=== PATIENT | male | born 1960 | race Caucasian/White ===

== ENCOUNTER 2017-11-30 14:01 | Inpatient (IN) | payer MEDICARE, OTHER ==
[~2017-11-30] VITALS: Ht 170.2 cm; Wt 104.0 kg
[~2017-11-30 14:01] MED LIST: ASPI325T PO; CYCL-36 PO; DIAZ2 PO; OXYC5 PO; PROZ40CA PO
[2017-11-30] MEDS ORDERED: GADODIAMIDE PF 287 MG/ML 5 ML VIAL (for RAD MRI) IVCONTRAST ONE (14:02)
[2017-11-30 14:05] VITALS: BP 164/87; PULSE 78; RESP 20; TEMP 98.3; O2SAT 98
--- NOTE | 2017-11-30 16:51 | PD ---
HPI Chief Complaint: Back/ Neck Pain or Injury Time Seen by Provider: 16:33 Travel History International Travel<30 days: No Contact w/Intl Traveler<30days: No Traveled to known affect area: No History of Present Illness HPI 57-year-old male here for evaluation of lower back pain, right thigh numbness, and bowel incontinence. The patient reports that for the last 2 weeks he has been having worsening lower back pain. He denies trauma. He reports that about a year and a half ago he had lumbar fusion. He reports that he was evaluated by orthopedist Dr. Tineo who ordered MRIs, however his insurance has not yet approved them. He states that for the last 2 days he has been having bowel incontinence having bowel movements in his bed while sleeping. He denies urinary incontinence or retention. Pain is 8 out of 10, severe, radiates down his right leg and associated with right leg weakness, made worse with movements. No fevers or chills. No IVDU. PFSH Past Medical History Arthritis: Yes Asthma: No Bipolar Disorder: Yes Anxiety: Yes Depression: Yes Heart Rhythm Problems: No Cardiovascular Problems: No High Cholesterol: No Chest Pain: No Congestive Heart Failure: No Cirrhosis: Yes COPD: No Cerebrovascular Accident: No Diabetes: No Diminished Hearing: No GERD: No Genitourinary: No Headaches: Yes Hepatitis: Yes (C) Hiatal Hernia: No Hypertension: No Kidney Stones: No Musculoskeletal: Yes Neurologic: No Reproductive: No Respiratory: No Migraines: Yes Renal Failure: No Seizures: No Sleep Apnea: No Ulcer: No Tetanus Vaccination: < 5 Years Influenza Vaccination: Yes PNEUMOCCOCAL Vaccine (Year): 2 Past Surgical History Abdominal Surgery: No Appendectomy: No Cardiac Surgery: No Cholecystectomy: No Ear Surgery: No Endocrine Surgery: No Eye Surgery: No Genitourinary Surgery: No Oral Surgery: No Thoracic Surgery: No Social History Alcohol Use: No Tobacco Use: Yes (1/2 PK/DAY) Substance Use: No Allergies-Medications (Allergen,Severity, Reaction): Coded Allergies: No Known Allergies (Verified , 10/08/15) Reported Meds & Prescriptions Reported Meds & Active Scripts Active Reported Valium (Diazepam) 2 Mg Tab 0 PO UNKNOWN DOSE Prozac (Fluoxetine HCl) 40 Mg Cap 40 Mg PO DAILY Oxycodone (Oxycodone HCl) 5 Mg Tab 10 Mg PO DAILY Flexeril (Cyclobenzaprine HCl) 10 Mg Tab 10 Mg PO DAILY Aspirin 325 Mg Tab (Aspirin) 325 Mg Tab 325 Mg PO DAILY Review of Systems Except as stated in HPI: all other systems reviewed are Neg Physical Exam Narrative GENERAL: Well-developed, well-nourished, comfortable, no apparent distress. SKIN: Focused skin assessment warm/dry. HEAD: Atraumatic. Normocephalic. EYES: Pupils equal and round. No scleral icterus. No injection or drainage. ENT: No nasal bleeding or discharge. Mucous membranes pink and moist. NECK: Trachea midline. No JVD. CARDIOVASCULAR: Regular rate and rhythm. No murmur appreciated. RESPIRATORY: No accessory muscle use. Clear to auscultation. Breath sounds equal bilaterally. GASTROINTESTINAL: Abdomen soft, non-tender, nondistended. MUSCULOSKELETAL: No obvious deformities. No clubbing. No cyanosis. No edema. NEUROLOGICAL: Awake and alert. No obvious cranial nerve deficits. Motor grossly within normal limits. Normal speech. Saddle anesthesia with decreased rectal tone. 4/5 muscle strength in right lower extremity in flexion and extension, 5/5 muscle strength in left lower extremity. Normal muscle strength in bilateral upper extremities. PSYCHIATRIC: Appropriate mood and affect; insight and judgment normal. Data Data Last Documented VS Vital Signs Date Time Temp Pulse Resp B/P (MAP) Pulse Ox O2 Delivery O2 Flow Rate FiO2 11/30/17 18:00 18 11/30/17 14:05 98.3 78 164/87 (112) 98 Orders Orders Complete Blood Count With Diff (11/30/17 14:07) Prothrombin Time / Inr (Pt) (11/30/17 14:07) Act Partial Throm Time (Ptt) (11/30/17 14:07) Comprehensive Metabolic Panel (11/30/17 14:07) Urinalysis - C+S If Indicated (11/30/17 14:07) Mri T Spine W/O Contrast (11/30/17 ) Morphine Inj (Morphine Inj) (11/30/17 17:45) Mri C Spine W&W/O Contrast (11/30/17 ) Mri L Spine W&W/O Contrast (11/30/17 ) Lorazepam Inj (Ativan Inj) (11/30/17 19:00) Labs Laboratory Tests Test 11/30/17 17:00 11/30/17 18:45 White Blood Count 7.8 TH/MM3 Red Blood Count 4.12 MIL/MM3 Hemoglobin 12.2 GM/DL Hematocrit 36.0 % Mean Corpuscular Volume 87.6 FL Mean Corpuscular Hemoglobin 29.6 PG Mean Corpuscular Hemoglobin Concent 33.9 % Red Cell Distribution Width 15.1 % Platelet Count 247 TH/MM3 Mean Platelet Volume 7.5 FL Neutrophils (%) (Auto) 74.4 % Lymphocytes (%) (Auto) 19.3 % Monocytes (%) (Auto) 4.7 % Eosinophils (%) (Auto) 0.6 % Basophils (%) (Auto) 1.0 % Neutrophils # (Auto) 5.8 TH/MM3 Lymphocytes # (Auto) 1.5 TH/MM3 Monocytes # (Auto) 0.4 TH/MM3 Eosinophils # (Auto) 0.1 TH/MM3 Basophils # (Auto) 0.1 TH/MM3 CBC Comment DIFF FINAL Differential Comment Urine Color YELLOW Urine Turbidity CLEAR Urine pH 6.0 Urine Specific [place] 1.017 Urine Protein NEG mg/dL Urine Glucose (UA) NEG mg/dL Urine Ketones NEG mg/dL Urine Occult Blood NEG Urine Nitrite NEG Urine Bilirubin NEG Urine Urobilinogen LESS THAN 2.0 MG/DL Urine Leukocyte Esterase NEG Urine RBC 1 /hpf Urine Squamous Epithelial Cells <1 /hpf Microscopic Urinalysis Comment CULT NOT INDICATED Blood Urea Nitrogen 9 MG/DL Creatinine 0.84 MG/DL Random Glucose 86 MG/DL Total Protein 7.4 GM/DL Albumin 3.9 GM/DL Calcium Level 8.9 MG/DL Alkaline Phosphatase 81 U/L Aspartate Amino Transf (AST/SGOT) 4 U/L Alanine Aminotransferase (ALT/SGPT) 13 U/L Total Bilirubin 0.4 MG/DL Sodium Level 142 MEQ/L Potassium Level 3.4 MEQ/L Chloride Level 110 MEQ/L Carbon Dioxide Level 25.1 MEQ/L Anion Gap 7 MEQ/L Estimat Glomerular Filtration Rate 94 ML/MIN [facility] Medical Decision Making Medical Screen Exam Complete: Yes Emergency Medical Condition: Yes Differential Diagnosis Spinal stenosis, conus medullaris syndrome, sciatica/radiculopathy, Narrative Course Vital signs reviewed. CBC is essentially unremarkable. CMP is essentially unremarkable. UA is not suggestive of UTI. At approximately 7:00 PM at the end of my shift the patient was signed out to Dr. Polk to follow-up with MRIs and disposition. Mitch Cunningham MD Nov 30, 2017 16:51
[2017-11-30] MEDS ORDERED: MORPHINE SULFATE 2 MG/ML SYRINGE IM ONE (17:45)
[2017-11-30 17:58] LABS: BILIRUBIN, URINE NEG (NEG); BLOOD, URINE NEG (NEG); GLUCOSE,URINE NEG (NEG); KETONE, URINE NEG (NEG); NITRITE,URINE NEG (NEG); SQUAMOUS EPITHELIAL CELL URINE <1 /hpf (0-5); URINE COLOR YELLOW (YELLW/STRAW); URINE LEUKOCYTE ESTERASE NEG (NEG)
[2017-11-30 17:59] LABS: AUTOMATED NEUTROPHIL # 5.8 TH/MM3 (1.8-7.7); BASOPHIL # 0.1 TH/MM3 (0-0.2); EOSINOPHIL # 0.1 TH/MM3 (0-0.4); EOSINOPHIL % 0.6 % (0.0-4.0); HEMOGLOBIN 12.2 GM/DL (13.0-17.0); LYMPH % 19.3 % (9.0-44.0); LYMPHOCYTE # 1.5 TH/MM3 (1.0-4.8); MEAN CELL VOLUME 87.6 FL (80.0-100.0); MEAN CORPUSCULAR HEMOGLOBIN 29.6 PG (27.0-34.0); MEAN CORPUSCULAR HGB CONC 33.9 % (32.0-36.0); MEAN PLATELET VOLUME 7.5 FL (7.0-11.0); MONO % 4.7 % (0.0-8.0); MONOCYTE # 0.4 TH/MM3 (0-0.9); NEUT % 74.4 % (16.0-70.0); PLATELET COUNT 247 TH/MM3 (150-450); RED BLOOD COUNT 4.12 MIL/MM3 (4.50-5.90); RED CELL DISTRIBUTION WIDTH 15.1 % (11.6-17.2); WHITE BLOOD COUNT 7.8 TH/MM3 (4.0-11.0)
[2017-11-30 18:10] LABS: ALBUMIN 3.9 GM/DL (3.4-5.0); AST (GOT) 4 U/L (15-37); BICARBONATE 25.1 MEQ/L (21.0-32.0); BLOOD UREA NITROGEN 9 MG/DL (7-18); CALCIUM 8.9 MG/DL (8.5-10.1); CHLORIDE 110 MEQ/L (98-107); CREATININE 0.84 MG/DL (0.60-1.30); GLOMERULAR FILTRATION RATE 94 ML/MIN (>89); GLUCOSE,RANDOM 86 MG/DL (74-106); SODIUM (NA) 142 MEQ/L (136-145)
[2017-11-30 18:11] LABS: ALT (GPT) 13 U/L (12-78)
[2017-11-30 18:13] LABS: ALKALINE PHOSPHATASE 81 U/L (45-117); TOTAL BILIRUBIN ADULT 0.4 MG/DL (0.2-1.0); TOTAL PROTEIN 7.4 GM/DL (6.4-8.2)
[2017-11-30 19:00] VITALS: BP 134/74; PULSE 70; RESP 18; O2SAT 96
[2017-11-30] MEDS ORDERED: LORazepam 2 MG/ML VIAL IV PUSH ONE (19:00)
--- NOTE | 2017-11-30 19:11 | PD ---
Data Data Last Documented VS Vital Signs Date Time Temp Pulse Resp B/P (MAP) Pulse Ox O2 Delivery O2 Flow Rate FiO2 11/30/17 18:00 18 11/30/17 14:05 98.3 78 164/87 (112) 98 Orders Orders Complete Blood Count With Diff (11/30/17 14:07) Prothrombin Time / Inr (Pt) (11/30/17 14:07) Act Partial Throm Time (Ptt) (11/30/17 14:07) Comprehensive Metabolic Panel (11/30/17 14:07) Urinalysis - C+S If Indicated (11/30/17 14:07) Mri T Spine W/O Contrast (11/30/17 ) Morphine Inj (Morphine Inj) (11/30/17 17:45) Mri C Spine W&W/O Contrast (11/30/17 ) Mri L Spine W&W/O Contrast (11/30/17 ) Lorazepam Inj (Ativan Inj) (11/30/17 19:00) Gadodiamide Pf Inj (Omniscan Pf Inj) (11/30/17 14:02) Morphine Inj (Morphine Inj) (11/30/17 20:30) Ondansetron Inj (Zofran Inj) (11/30/17 20:30) Sodium Chlor 0.9% 1000 Ml Inj (Ns 1000 M (11/30/17 21:30) Hydromorphone Pf Inj (Dilaudid Pf Inj) (11/30/17 21:30) Admit Order (Ed Use Only) (11/30/17 21:45) Labs Laboratory Tests Test 11/30/17 17:00 11/30/17 18:45 White Blood Count 7.8 TH/MM3 Red Blood Count 4.12 MIL/MM3 Hemoglobin 12.2 GM/DL Hematocrit 36.0 % Mean Corpuscular Volume 87.6 FL Mean Corpuscular Hemoglobin 29.6 PG Mean Corpuscular Hemoglobin Concent 33.9 % Red Cell Distribution Width 15.1 % Platelet Count 247 TH/MM3 Mean Platelet Volume 7.5 FL Neutrophils (%) (Auto) 74.4 % Lymphocytes (%) (Auto) 19.3 % Monocytes (%) (Auto) 4.7 % Eosinophils (%) (Auto) 0.6 % Basophils (%) (Auto) 1.0 % Neutrophils # (Auto) 5.8 TH/MM3 Lymphocytes # (Auto) 1.5 TH/MM3 Monocytes # (Auto) 0.4 TH/MM3 Eosinophils # (Auto) 0.1 TH/MM3 Basophils # (Auto) 0.1 TH/MM3 CBC Comment DIFF FINAL Differential Comment Urine Color YELLOW Urine Turbidity CLEAR Urine pH 6.0 Urine Specific [place] 1.017 Urine Protein NEG mg/dL Urine Glucose (UA) NEG mg/dL Urine Ketones NEG mg/dL Urine Occult Blood NEG Urine Nitrite NEG Urine Bilirubin NEG Urine Urobilinogen LESS THAN 2.0 MG/DL Urine Leukocyte Esterase NEG Urine RBC 1 /hpf Urine Squamous Epithelial Cells <1 /hpf Microscopic Urinalysis Comment CULT NOT INDICATED Blood Urea Nitrogen 9 MG/DL Creatinine 0.84 MG/DL Random Glucose 86 MG/DL Total Protein 7.4 GM/DL Albumin 3.9 GM/DL Calcium Level 8.9 MG/DL Alkaline Phosphatase 81 U/L Aspartate Amino Transf (AST/SGOT) 4 U/L Alanine Aminotransferase (ALT/SGPT) 13 U/L Total Bilirubin 0.4 MG/DL Sodium Level 142 MEQ/L Potassium Level 3.4 MEQ/L Chloride Level 110 MEQ/L Carbon Dioxide Level 25.1 MEQ/L Anion Gap 7 MEQ/L Estimat Glomerular Filtration Rate 94 ML/MIN Prothrombin Time 10.4 SEC Prothromb Time International Ratio 1.0 RATIO Activated Partial Thromboplast Time 23.5 SEC [facility] Medical Record Reviewed: Yes Supervised Visit with JASMYNE: No Interpretation(s) Last Impressions Thoracic Spine MRI 11/30/17 0000 Signed Impressions: Service Date/Time: Thursday, November 30, 2017 19:04 - CONCLUSION: Normal examination for a patient of this age. Goyo Lobo MD Lumbar Spine MRI 11/30/17 0000 Signed Impressions: Service Date/Time: Thursday, November 30, 2017 19:04 - CONCLUSION: 1. Facet arthropathy in the lower lumbar spine at L4-5-S1. This is most severe on the left side at L4-5 where there is associated abnormal marrow and soft tissue enhancement and edema and facet hypertrophy. There is lateral recess and foraminal encroachment bilaterally at L4-5-S1. Normal alignment. Goyo Lobo MD Cervical Spine MRI 11/30/17 0000 Signed Impressions: Service Date/Time: Thursday, November 30, 2017 19:04 - CONCLUSION: 1. Previous fusion of the lower cervical spine. No significant residual canal stenosis or cord impingement. Goyo Lobo MD Narrative Course During the course of the patient's emergency department visit, the patient's history, examination, and differential diagnosis were reviewed with the patient. The patient was placed on a radiation monitor with oximetry and frequent blood pressure monitoring. The patient had IV access obtained and blood work sent for analysis. The patient's case was checked out to me by Dr. Cunningham. He see his complete history and physical. The patient's case was checked out to me at the conclusion of his shift. Please see his complete history and physical. The patient is pending reading of the MRI of the C-spine, T-spine, and L-spine. The patient presented with low back pain that has been worsening over the last 2 weeks. Patient also has right lower extremity weakness, incontinence of stool, and saddle anesthesia on Dr. Cunningham's exam. The patient is being managed as an outpatient by Dr. May, a local orthopedic physician for his back pain The patient was initially provided morphine for pain, Ativan for anxiety. The patient's laboratory studies were reviewed and remarkable for a white count of 7.8, hemoglobin 12.2, platelets 247 with neutrophils 74.4. CMP is remarkable for potassium of 3.4, chloride 110, AST 4,Urinalysis is within normal limits. On arrival back from MRI the patient reported recurrence of pain. The patient was given morphine 4 mg IV 1, Zofran 4 mg IV. Radiology studies were reviewed and remarkable for a T-spine MRI that shows no acute abnormality. C-spine MRI shows a previous cervical fusion, no other acute abnormality. Lumbar spine MRI reveals facet arthropathy in the lower lumbar spine at L4-L5 L5-S1 most severe on the left side at L4-L5 where there is associated abnormal marrow and soft tissue enhancement and edema and facet hypertrophy. There is lateral recess and foraminal encroachment bilaterally at L4-5 S1. I spoke to Saira for Dr. Andrade battalion chief for Dr. May at 9:40PM. He recommended a routine consult with in the morning due to the nonacute findings on MRI. The patient's results were discussed with the patient, including the plan of care. I explained that further testing and/ or monitoring is indicated based on the patient's history, examination, and/ or laboratory findings. Therefore, I recommended admission for additional evaluation. The patient expressed understanding and was agreeable with this plan. The patient was admitted to the hospital in guarded condition and sent to a bed under the care of Dr. Gonzales's service. Physician Communication Physician Communication The patient's case including history, pertinent physical examination findings, and laboratory studies were discussed with Dotty for Dr. Gonzales's service. It was agreed that the patient would be admitted to Dr. Gonzales's service. Diagnosis Primary Impression: Back pain Qualified Codes: M54.41 - Lumbago with sciatica, right side Additional Impressions: Lumbar radiculopathy Stool incontinence Qualified Codes: R15.9 - Full incontinence of feces Right leg weakness Admitting Information Admitting Physician Requests: Admit Andreea Polk MD Nov 30, 2017 19:11
[2017-11-30 19:24] LABS: PROTHROMBIN TIME - PATIENT 10.4 SEC (9.8-11.6)
--- NOTE | 2017-11-30 19:57 | RADRPT ---
EXAM DATE/TIME: 11/30/2017 19:04 [facility] COMPARISON: No previous studies available for comparison. INDICATIONS : Pain. MEDICAL HISTORY : None. SURGICAL HISTORY : Fusion, cervical. Discectomy, lumbar. ENCOUNTER: Initial ACUITY: 4-6 days PAIN SCORE: 9/10 LOCATION: Left mid back region. TECHNIQUE: Multiplanar multisequence MRI of the thoracic spine was performed. FINDINGS: VERTEBRA: Normal vertebral body height. Homogeneous marrow signal. ALIGNMENT: Normal. CORD: Normal position and configuration. T1-T2: Normal. T2-T3: The thecal sac has a normal diameter. No evidence of disc bulge or protrusion. T3-T4: The thecal sac has a normal diameter. No evidence of disc bulge or protrusion. T4-T5: The thecal sac has a normal diameter. No evidence of disc bulge or protrusion. T5-T6: The thecal sac has a normal diameter. No evidence of disc bulge or protrusion. T6-T7: The thecal sac has a normal diameter. No evidence of disc bulge or protrusion. T7-T8: The thecal sac has a normal diameter. No evidence of disc bulge or protrusion. T8-T9: The thecal sac has a normal diameter. No evidence of disc bulge or protrusion. T9-T10: The thecal sac has a normal diameter. No evidence of disc bulge or protrusion. T10-T11: The thecal sac has a normal diameter. No evidence of disc bulge or protrusion. T11-T12: The thecal sac has a normal diameter. No evidence of disc bulge or protrusion. T12-L1: The thecal sac has a normal diameter. No evidence of disc bulge or protrusion. CONCLUSION: Normal examination for a patient of this age. Goyo Lobo MD on November 30, 2017 at 19:53 Board Certified Radiologist. This report was verified electronically.
[2017-11-30] MEDS ORDERED: ONDANSETRON HCL 4 MG/2 ML VIAL IV PUSH ONE (20:30)
[2017-11-30] MEDS ORDERED: MORPHINE SULFATE 4 MG/ML INJ IV PUSH ONE (20:30)
--- NOTE | 2017-11-30 20:42 | RADRPT ---
EXAM DATE/TIME: 11/30/2017 19:04 [facility] COMPARISON: No previous studies available for comparison. INDICATIONS : Pain. CONTRAST: 20 cc Omniscan (gadodiamide) IV MEDICAL HISTORY : None. SURGICAL HISTORY : Discectomy, lumbar. Fusion, cervical. Coronary artery stent. Knee and ankle sx. ENCOUNTER: Initial ACUITY: 4-6 days PAIN SCORE: 9/10 LOCATION: Left lower back. TECHNIQUE: Multiplanar multisequence MRI of the lumbar spine was performed with and without contrast. FINDINGS: [id number] there is no significant abnormality. At L4-5 there is abnormal enhancement and bone edema around the left facet joint with facet hypertrop hy identified,. Less severe facet arthropathy present on the right side. There is ligamentum flavum h ypertrophy as well as a posterior disc bulge resulting in mild canal stenosis at the lateral recesses and mild bilateral foraminal stenosis. At L5-S1 there is moderate degenerative change and posterior disc osteophyte complex facet arthropath y resulting in mild lateral recess stenosis and mild bilateral foraminal stenosis. CONCLUSION: 1. Facet arthropathy in the lower lumbar spine at L4-5-S1. This is most severe on the left side at L4 -5 where there is associated abnormal marrow and soft tissue enhancement and edema and facet hypertro phy. There is lateral recess and foraminal encroachment bilaterally at L4-5-S1. Normal alignment. Goyo Lobo MD on November 30, 2017 at 20:31 Board Certified Radiologist. This report was verified electronically.
--- NOTE | 2017-11-30 20:58 | RADRPT ---
EXAM DATE/TIME: 11/30/2017 19:04 [facility] COMPARISON: No previous studies available for comparison. INDICATIONS : Pain. CONTRAST: 20 cc Omniscan (gadodiamide) IV MEDICAL HISTORY : None. SURGICAL HISTORY : Discectomy, lumbar. Fusion, cervical. Coronary artery stent. Knee and ankle sx. ENCOUNTER: Initial ACUITY: 4-6 days PAIN SCORE: 7/10 LOCATION: Left neck region. TECHNIQUE: Multiplanar, multisequence MRI examination of the cervical spine was performed. FINDINGS: There is previous fusion across C5-7. There is no significant residual canal stenosis or cord impinge ment. Postcontrast images reveal no significant abnormal enhancement within the canal. Alignment is w ithin normal limits. No discrete disc protrusions. CONCLUSION: 1. Previous fusion of the lower cervical spine. No significant residual canal stenosis or cord imping ement. Goyo Lobo MD on November 30, 2017 at 20:52 Board Certified Radiologist. This report was verified electronically.
[2017-11-30] MEDS ORDERED: HYDROmorphone HCL PF 2 MG/ML VIAL IV PUSH ONE (21:30)
[2017-11-30] MEDS: SODIUM CHLOR 0.9% 1000 ML INJ 1,000 ML IV SCH (21:44)
[2017-11-30] MEDS ORDERED: MAGNESIUM HYDROXIDE SUSP 30 ML CUP PO PRN (22:00)
[2017-11-30] MEDS ORDERED: BISACODYL 10 MG SUPP RECTAL PRN (22:00)
[2017-11-30] MEDS ORDERED: NALOXONE HCL 0.4 MG/ML AMP IV PUSH PRN (22:00)
[2017-11-30] MEDS ORDERED: SENNOSIDES 8.6 MG TAB PO PRN (22:00)
[2017-11-30] MEDS ORDERED: SODIUM CHLORIDE 0.9% FLUSH 10 ML FLUSH IV FLUSH PRN (22:00)
[2017-11-30] MEDS ORDERED: LACTULOSE SYRUP 20 GM/30 ML CUP PO PRN (22:00)
[2017-11-30 23:00] VITALS: BP 128/68; PULSE 72; RESP 18; O2SAT 97
[2017-12-01] MEDS: HYDROmorphone HCL PF 2 MG/ML VIAL IV PUSH PRN ×5 (00:15→22:47)
[2017-12-01] MEDS: oxyCODONE/ACETAMINOPHEN 10 MG/325 MG TAB PO PRN ×3 (02:39→15:36)
[2017-12-01 05:01] VITALS: BP 116/80; PULSE 63; RESP 18; O2SAT 9; O2SAT 95
[2017-12-01] MEDS: SODIUM CHLOR 0.9% 1000 ML INJ 1,000 ML IV SCH ×3 (07:30→22:16)
--- NOTE | 2017-12-01 07:34 | MB ---
cc: Arsh Ozuna MD DATE: 12/01/2017 REASON FOR CONSULTATION: Low back and leg pain. HISTORY OF PRESENT ILLNESS: Franky is a 57-year-old male who has a history of chronic low back pain. Approximately 2 years ago he had similar symptoms. He has subsequently treated with surgery up at [facility] in [place]. He states at that time he was having severe back and leg pain. He had also developed bowel and bladder incontinence. He was doing better after surgery. Over the past 2 months, he has had increasing pain. He has had intermittent bowel and bladder incontinence over the past 2 months. He states that he has had bowel movements in bed without knowing it. He also complains of a burning pain in his right thigh. He presented to the Emergency Room for further evaluation. He is currently awake and alert in the Emergency Department. He complains mostly of low back pain. PAST MEDICAL HISTORY: Arthritis, degenerative disc disease, bipolar disorder, hepatitis. PAST SURGICAL HISTORY: Lumbar decompression. ALLERGIES: NONE. MEDICATIONS: 1. Prozac. 2. Valium. 3. Oxycodone. 4. Flexeril. 5. Aspirin. MEDICATIONS: Please see EMR for a complete list of inpatient medications. SOCIAL HISTORY: The patient smokes a half pack a day. Denies alcohol or drug use. FAMILY HISTORY: Noncontributory. He denies any familial medical problems. REVIEW OF SYSTEMS: The patient denies headache, visual changes, neck pain, chest pain, abdominal pain, nausea, vomiting, or recent weight loss. He complains of low back pain. He complains of right thigh numbness and burning. He also complains of bowel or bladder incontinence. PHYSICAL EXAMINATION: GENERAL: The patient is a 57-year-old male. He is awake and alert. He is in no acute distress. He is mildly overweight. VITAL SIGNS: Temperature 98.3, pulse 63, respirations 18, blood pressure 116/80, O2 saturation 95% on room air. HEENT: The patient is normocephalic. Pupils are equal. NECK: Soft, nontender. The trachea is in the midline. ABDOMEN: Soft, nontender, nondistended. EXTREMITIES: Examination of the bilateral upper extremities reveals no pain with shoulder, elbow and wrist motion. He has intact sensation in all fingers. He has good cap refill in all fingers. Skin is intact. Radial pulses are palpable. Switchboard Manager strength is +5. Examination of the left leg reveals no significant pain with hip, knee or ankle motion. Skin is intact. Sensation intact in the left foot. He has +5 strength with hip flexion and extension, knee flexion and extension, ankle dorsiflexion and plantar flexion. Examination of the right leg reveals minimal pain with gentle hip, knee or ankle motion. He does have back and leg pain with straight leg raise test. He has diminished sensation over his anterior thigh. He has no pain with knee or ankle motion. He has +5 strength of ankle dorsiflexion and plantar flexion. MRI of lumbar spine was reviewed. The patient does have degenerative disk disease. He does have foraminal encroachment bilaterally at L4-L5 and L5-S1. LABS: INR is 1.0. Hematocrit is 36, white blood cell count 7.8, and platelet count 247 IMPRESSION: 1. Chronic low back pain. 2. History of lumbar decompression. 3. Bowel and bladder incontinence. PLAN: Treatment options were discussed with the patient. At this point, I am concerned about his bowel and bladder incontinence. I would recommend a neurosurgery consultation for further evaluation. He will likely have chronic low back pain secondary to his degenerative disk disease. He may benefit from epidural steroid injections for the nerve root impingement. At this point, I will defer possible surgical intervention to neurosurgery. MD BARRY Zaldivar/ADRIANE , 07:18 AM , 07:34 AM [facility]
[2017-12-01 08:25] VITALS: BP 108/67; PULSE 72; RESP 18; TEMP 97.7; O2SAT 98
[2017-12-01] MEDS: DOCUSATE SODIUM 50 MG/SENNA 8.6 MG TAB PO SCH ×2 (09:00→21:00)
[2017-12-01] MEDS: FLUoxetine HCL 20 MG CAP PO SCH (09:00)
[2017-12-01] MEDS: SODIUM CHLORIDE 0.9% FLUSH 10 ML FLUSH IV FLUSH SCH ×2 (09:00→21:00)
[2017-12-01] MEDS: CYCLOBENZAPRINE HCL 10 MG TAB PO SCH (09:14)
--- NOTE | 2017-12-01 09:47 | HHI.HP ---
History of Present Illness Primary Care Physician Kevin Gonzales, DO Admission Diagnosis Intractable back pain, right leg weakness, incontinence of stool Diagnoses: Review of Systems Constitutional: COMPLAINS OF: Fatigue Gastrointestinal: COMPLAINS OF: Diarrhea Genitourinary: COMPLAINS OF: Urinary incontinence Musculoskeletal: COMPLAINS OF: Back pain Past Family Social History Allergies: Coded Allergies: No Known Allergies (Verified Allergy, Unknown, 11/30/17) Past Medical History Arthritis DDD Bipolar Hepatitis Past Surgical History Lumbar Decompression with Fusion Reported Medications Prozac Oxycodone Flexeril ASA Valium Active Ordered Medications Current Medications Medications (Trade) Dose Ordered Sig/Rell Route Start Time Stop Time Status Last Admin Sodium Chloride 1,000 ml @ 100 mls/hr Q10H IV 11/30/17 21:30 11/30/17 21:44 (NS Flush) 2 ml UNSCH PRN IV FLUSH 11/30/17 22:00 (NS Flush) 2 ml BID IV FLUSH 12/01/17 09:00 (Narcan Inj) 0.4 mg UNSCH PRN IV PUSH 11/30/17 22:00 (Kaycee-Colace) 1 tab BID PO 12/01/17 09:00 (Milk Of Magnesia Liq) 30 ml Q12H PRN PO 11/30/17 22:00 (Senokot) 17.2 mg Q12H PRN PO 11/30/17 22:00 (Dulcolax Supp) 10 mg DAILY PRN RECTAL 11/30/17 22:00 (Lactulose Liq) 30 ml DAILY PRN PO 11/30/17 22:00 (Flexeril) 10 mg DAILY PO 12/01/17 09:00 12/01/17 09:14 (PROzac) 40 mg DAILY PO 12/01/17 09:00 (Dilaudid Pf Inj) 1 mg Q4H PRN IV PUSH 11/30/17 22:30 12/01/17 09:14 (Percocet 10-325 Mg) 1 tab Q4H PRN PO 11/30/17 22:15 12/01/17 08:15 Social History 1/2 pack day tobacco Denies ETOH Denies recreational drugs Physical Exam Vital Signs Vital Signs Date Time Temp Pulse Resp B/P (MAP) Pulse Ox O2 Delivery O2 Flow Rate FiO2 12/01/17 08:25 97.7 72 18 108/67 (81) 98 12/01/17 05:01 63 18 116/80 (92) 95 Room Air 11/30/17 23:00 72 18 128/68 (88) 97 Room Air 11/30/17 19:00 70 18 134/74 (94) 96 Room Air 11/30/17 18:00 18 11/30/17 16:44 18 11/30/17 14:05 98.3 78 20 164/87 (112) 98 Physical Exam GENERAL: This is a well-nourished, well-developed patient, in no mild distress. SKIN: No rashes, ecchymoses or lesions. Cool and dry. HEAD: Atraumatic. Normocephalic. No temporal or scalp tenderness. EYES: Pupils equal round and reactive. Extraocular motions intact. No scleral icterus. No injection or drainage. ENT: Nose without bleeding, purulent drainage or septal hematoma. Throat without erythema. NECK: Trachea midline. No JVD or lymphadenopathy. CARDIOVASCULAR: Regular rate and rhythm without murmurs, gallops, or rubs. RESPIRATORY: Clear to auscultation. Breath sounds equal bilaterally. No wheezes , rales, or rhonchi. GASTROINTESTINAL: Abdomen soft, non-tender, nondistended. MUSCULOSKELETAL: Extremities with trace pedal edema, lumbar tenderness NEUROLOGICAL: Awake and alert. Cranial nerves II through XII intact normal speech Laboratory Laboratory Tests Test 11/30/17 17:00 11/30/17 18:45 White Blood Count 7.8 Red Blood Count 4.12 Hemoglobin 12.2 Hematocrit 36.0 Mean Corpuscular Volume 87.6 Mean Corpuscular Hemoglobin 29.6 Mean Corpuscular Hemoglobin Concent 33.9 Red Cell Distribution Width 15.1 Platelet Count 247 Mean Platelet Volume 7.5 Neutrophils (%) (Auto) 74.4 Lymphocytes (%) (Auto) 19.3 Monocytes (%) (Auto) 4.7 Eosinophils (%) (Auto) 0.6 Basophils (%) (Auto) 1.0 Neutrophils # (Auto) 5.8 Lymphocytes # (Auto) 1.5 Monocytes # (Auto) 0.4 Eosinophils # (Auto) 0.1 Basophils # (Auto) 0.1 CBC Comment DIFF FINAL Differential Comment Urine Color YELLOW Urine Turbidity CLEAR Urine pH 6.0 Urine Specific [place] 1.017 Urine Protein NEG Urine Glucose (UA) NEG Urine Ketones NEG Urine Occult Blood NEG Urine Nitrite NEG Urine Bilirubin NEG Urine Urobilinogen LESS THAN 2.0 Urine Leukocyte Esterase NEG Urine RBC 1 Urine Squamous Epithelial Cells <1 Microscopic Urinalysis Comment CULT NOT INDICATED Blood Urea Nitrogen 9 Creatinine 0.84 Random Glucose 86 Total Protein 7.4 Albumin 3.9 Calcium Level 8.9 Alkaline Phosphatase 81 Aspartate Amino Transf (AST/SGOT) 4 Alanine Aminotransferase (ALT/SGPT) 13 Total Bilirubin 0.4 Sodium Level 142 Potassium Level 3.4 Chloride Level 110 Carbon Dioxide Level 25.1 Anion Gap 7 Estimat Glomerular Filtration Rate 94 Prothrombin Time 10.4 Prothromb Time International Ratio 1.0 Activated Partial Thromboplast Time 23.5 Result Diagram: 11/30/17 1700 11/30/17 1700 Imaging Last 72 hours Impressions Thoracic Spine MRI 11/30/17 0000 Signed Impressions: Service Date/Time: Thursday, November 30, 2017 19:04 - CONCLUSION: Normal examination for a patient of this age. Goyo Lobo MD Lumbar Spine MRI 11/30/17 0000 Signed Impressions: Service Date/Time: Thursday, November 30, 2017 19:04 - CONCLUSION: 1. Facet arthropathy in the lower lumbar spine at L4-5-S1. This is most severe on the left side at L4-5 where there is associated abnormal marrow and soft tissue enhancement and edema and facet hypertrophy. There is lateral recess and foraminal encroachment bilaterally at L4-5-S1. Normal alignment. Goyo Lobo MD Cervical Spine MRI 11/30/17 0000 Signed Impressions: Service Date/Time: Thursday, November 30, 2017 19:04 - CONCLUSION: 1. Previous fusion of the lower cervical spine. No significant residual canal stenosis or cord impingement. Goyo Lobo MD Caprini VTE Risk Assessment Caprini VTE Risk Assessment: No/Low Risk (score <= 1) Caprini Risk Assessment Model Point Value = 1 Point Value = 2 Point Value = 3 Point Value = 5 Age 41-60 Minor surgery BMI > 25 kg/m2 Swollen legs Varicose veins or History of unexplained or recurrent spontaneous Oral contraceptives or hormone replacement Sepsis (< 1 month) Serious lung disease, including pneumonia (< 1 month) Abnormal pulmonary function Acute myocardial infarction Congestive heart failure (< 1 month) History of inflammatory bowel disease Medical patient at bed rest Age 61-74 Arthroscopic surgery Major open surgery (> 45 min) Laparoscopic surgery (> 45 min) Malignancy Confined to bed (> 72 hours) Immobilizing plaster cast Central venous access Age >= 75 History of VTE Family history of VTE Factor V Leiden Prothrombin [id number] Lupus anticoagulant Anticardiolipin antibodies Elevated serum homocysteine Heparin-induced thrombocytopenia Other congenital or acquired thrombophilia Stroke (< 1 month) Elective arthroplasty Hip, pelvis, or leg fracture Acute spinal cord injury (< 1 month) Prophylaxis Regimen Total Risk Factor Score Risk Level Prophylaxis Regimen 0-1 Low Early ambulation 2 Moderate Order ONE of the following: *Sequential Compression Device (SCD) *Heparin 5000 units SQ BID 3-4 Higher Order ONE of the following medications: *Heparin 5000 units SQ TID *Enoxaparin/Lovenox 40 mg SQ daily (WT < 150 kg, CrCl > 30 mL/min) *Enoxaparin/Lovenox 30 mg SQ daily (WT < 150 kg, CrCl > 10-29 mL/min) *Enoxaparin/Lovenox 30 mg SQ BID (WT < 150 kg, CrCl > 30 mL/min) AND/OR *Sequential Compression Device (SCD) 5 or more Highest Order ONE of the following medications: *Heparin 5000 units SQ TID (Preferred with Epidurals) *Enoxaparin/Lovenox 40 mg SQ daily (WT < 150 kg, CrCl > 30 mL/min) *Enoxaparin/Lovenox 30 mg SQ daily (WT < 150 kg, CrCl > 10-29 mL/min) *Enoxaparin/Lovenox 30 mg SQ BID (WT < 150 kg, CrCl > 30 mL/min) AND *Sequential Compression Device (SCD) Assessment and Plan Problem List: (1) Intractable back pain ICD Codes: M54.9 - Dorsalgia, unspecified Plan: Ortho, neurosurgeon consulted Will wait for recommendation. Pain management (2) Hypokalemia ICD Codes: E87.6 - Hypokalemia Plan: Will replace, cont to monitor (3) Bipolar 1 disorder ICD Codes: F31.9 - Bipolar disorder, unspecified Plan: Mood appears stable cont home medications Discharge Planning home at [facility] Dec 01, 2017 09:47
[2017-12-01] MEDS ORDERED: POTASSIUM CHLORIDE 10 MEQ CAP PO ONE (10:00)
[2017-12-01 10:25] VITALS: BP 135/76; PULSE 71; RESP 18; TEMP 98.2; O2SAT 98
[2017-12-01] MEDS ORDERED: HYDROmorphone HCL PF 2 MG/ML VIAL IV PUSH ONE (17:30)
[2017-12-01 20:00] VITALS: PULSE 70
--- NOTE | 2017-12-01 20:10 | MB ---
cc: Elmer Núñez MD, Rohit K MD Woodard, Gerald R DO DATE: 12/01/2017 REASON FOR CONSULTATION: Low back pain. HISTORY OF PRESENT ILLNESS: This is a 57-year-old gentleman who was admitted last evening after presenting to the emergency room with complaints of worsening low back pain along with right anterior thigh numbness. He has been seen by a local spine orthopedic surgeon, Dr. May and MRI scans were requested, but some are not undertaken and therefore he presented to the emergency room for further evaluation. He has had a history of lumbar spine surgery in [place] several years ago he relates because he was having pain in his back and numbness and weakness in his legs along with bowel and bladder incontinence. These symptoms improved but not completely resolved. Over the last several months, he has noticed again recurrence of his worsening pain and right thigh numbness along with intermittent bowel and bladder incontinence. He denies any left lower extremity symptoms. MRI scan of the cervical, thoracic and lumbar spine were obtained. He has a previous C5-C6 and C6-C7 anterior cervical fusion in place, which he had in [place] several years ago also. There is no significant thoracic or lumbar spinal stenosis. He appears to have right L4-L5 and L5-S1 hemilaminotomy defects. There is moderate degenerative disk disease at L5 and S1 levels, as well as significant L4-L5 and L5-S1 facet arthropathy, but overall mild foraminal stenosis. The patient relates to me that he started physical therapy and pain management along with multiple medications and none of this has worked and is requesting lumbar spine surgery. He has been seen by orthopedic surgery also during the current hospitalization. PAST MEDICAL HISTORY: Anterior C5-C7 cervical diskectomy with fusion, lumbar laminectomy for cauda equina syndrome several years ago and he had weakness, bowel and bladder incontinence and numbness prior to surgery, bipolar disorder, hepatitis, substance abuse and alcohol abuse. SOCIAL HISTORY: He is single. He is disabled. He has children that reside out of state. His is . He smokes half a pack of cigarettes a day. Denies alcohol use. MEDICATIONS: 1. Aspirin 325 mg daily. 2. Flexeril 10 mg daily. 3. Valium 2 mg. 4. Prozac 40 mg daily. 5. Oxycodone 5 mg p.r.n. ALLERGIES: NO KNOWN DRUG ALLERGIES FAMILY HISTORY: Unremarkable. LABORATORY STUDIES: White blood cell count 7.8, hemoglobin 12.2, platelet count 247. PT 10.4, INR 1.0, PTT 23.5. Sodium 142, potassium 3.4, BUN 9, creatinine 0.84, glucose 86. Urinalysis is negative. REVIEW OF SYSTEMS: Pertinent positives as mentioned in the history of present illness, otherwise, the rest of review of systems is negative. PHYSICAL EXAMINATION: GENERAL: This is a gentleman who is lying in his bed in no acute distress. HEENT: Head is normocephalic, atraumatic with a negative [place] and raccoon sign. NECK: Supple with no guarding or rigidity. CHEST: Clear to auscultation bilaterally. HEART: Regular rate and rhythm. Normal S1, S2. ABDOMEN: Soft, nontender, positive bowel sounds. He is obese. No hepatosplenomegaly. EXTREMITIES: No cyanosis, edema, or tenderness to the calf or thigh to palpation. SKIN: No rashes, erythema or breakdown. HEENT: No exudate or discharge from the nose or ears. Mucous membranes are moist and pink. NEUROLOGIC: He is awake, alert. He is oriented x3. Cranial nerves are grossly intact. Motor strength is 5/5 in the upper and lower extremities. He relates some numbness in the right anterior thigh, but not in the lower dermatomes. Negative Babinski. Negative straight leg raise test. Speech is fluent. IMPRESSION: Chronic low back pain with right anterior thigh numbness, possibly L2 radiculopathy versus meralgia paresthetica. He has L4-L5 and L5-S1 facet arthropathy along with the post-laminectomy, but overall mild spinal stenosis with moderate L5 and S1 degenerative disk disease. There is a previous C5-C7 cervical fusion. No significant spinal stenosis or cord compression is noted. He has what appears to be residual cauda equina syndrome from his lumbar stenosis and subsequent decompression several years ago. PLAN: I do not feel he will benefit from any further spinal surgery, but he is adamant that we consider spine surgery. I recommended continued pain management and rehabilitation with physical therapy. He can follow up with his orthopedic spine surgeon for a second opinion if he so desires. Elmer K. Niya, MD RKK//rh , 05:12 PM , 05:38 PM
[2017-12-01 20:14] VITALS: BP 113/56; PULSE 93; RESP 18; TEMP 98.3; O2SAT 97
[2017-12-01] MEDS: HEPARIN SODIUM - SQ 10,000 UNITS/ML VIAL SQ SCH (21:00)
[2017-12-01 23:49] VITALS: BP 107/59; PULSE 71; RESP 18; TEMP 97; O2SAT 94
[2017-12-02] VITALS (15 sets, daily range): BP systolic 102–124; BP diastolic 58–68; PULSE 69–88; RESP 16–18; TEMP 97.6–98.3; O2SAT 97–99
[2017-12-02] MEDS: oxyCODONE/ACETAMINOPHEN 10 MG/325 MG TAB PO PRN ×6 (00:47→21:06)
[2017-12-02] MEDS: HYDROmorphone HCL PF 2 MG/ML VIAL IV PUSH PRN ×6 (02:30→22:13)
--- NOTE | 2017-12-02 07:19 | HHI.PR ---
Subjective Remarks Slept well, complains of pain to Right thigh. Objective Vital Signs Date Time Temp Pulse Resp B/P (MAP) Pulse Ox O2 Delivery O2 Flow Rate FiO2 12/02/17 05:21 19 12/02/17 04:02 74 12/02/17 04:00 97.8 73 18 102/58 (73) 98 12/02/17 03:02 18 12/02/17 00:12 Room Air 12/02/17 00:00 76 12/01/17 23:49 97.0 71 18 107/59 (75) 94 12/01/17 20:14 98.3 93 18 113/56 (75) 97 12/01/17 20:00 70 12/01/17 14:00 18 12/01/17 10:25 98.2 71 18 135/76 (95) 98 12/01/17 08:25 97.7 72 18 108/67 (81) 98 Result Diagram: 11/30/17 1700 11/30/17 1700 Imaging Last 72 hours Impressions Thoracic Spine MRI 11/30/17 0000 Signed Impressions: Service Date/Time: Thursday, November 30, 2017 19:04 - CONCLUSION: Normal examination for a patient of this age. Gooy Lobo MD Lumbar Spine MRI 11/30/17 0000 Signed Impressions: Service Date/Time: Thursday, November 30, 2017 19:04 - CONCLUSION: 1. Facet arthropathy in the lower lumbar spine at L4-5-S1. This is most severe on the left side at L4-5 where there is associated abnormal marrow and soft tissue enhancement and edema and facet hypertrophy. There is lateral recess and foraminal encroachment bilaterally at L4-5-S1. Normal alignment. Goyo Lobo MD Cervical Spine MRI 11/30/17 0000 Signed Impressions: Service Date/Time: Thursday, November 30, 2017 19:04 - CONCLUSION: 1. Previous fusion of the lower cervical spine. No significant residual canal stenosis or cord impingement. Goyo Lobo MD Objective Remarks GENERAL: This is a well-nourished, well-developed patient, in no mild distress. SKIN: No rashes, ecchymoses or lesions. Cool and dry. CARDIOVASCULAR: Regular rate and rhythm without murmurs, gallops, or rubs. RESPIRATORY: Clear to auscultation. Breath sounds equal bilaterally. No wheezes , rales, or rhonchi. GASTROINTESTINAL: Abdomen soft, non-tender, nondistended. MUSCULOSKELETAL: Extremities with trace pedal edema, lumbar tenderness NEUROLOGICAL: Awake and alert. Cranial nerves II through XII intact normal speech Medications and IVs Current Medications Medications (Trade) Dose Ordered Sig/Rell Route Start Time Stop Time Status Last Admin Sodium Chloride 1,000 ml @ 100 mls/hr Q10H IV 11/30/17 21:30 12/01/17 22:16 (NS Flush) 2 ml UNSCH PRN IV FLUSH 11/30/17 22:00 (NS Flush) 2 ml BID IV FLUSH 12/01/17 09:00 (Narcan Inj) 0.4 mg UNSCH PRN IV PUSH 11/30/17 22:00 (Kaycee-Colace) 1 tab BID PO 12/01/17 09:00 (Milk Of Magnesia Liq) 30 ml Q12H PRN PO 11/30/17 22:00 (Senokot) 17.2 mg Q12H PRN PO 11/30/17 22:00 (Dulcolax Supp) 10 mg DAILY PRN RECTAL 11/30/17 22:00 (Lactulose Liq) 30 ml DAILY PRN PO 11/30/17 22:00 (Flexeril) 10 mg DAILY PO 12/01/17 09:00 12/01/17 09:14 (PROzac) 40 mg DAILY PO 12/01/17 09:00 (Percocet 10-325 Mg) 1 tab Q4H PRN PO 11/30/17 22:15 12/02/17 04:41 (Heparin Inj) 5,000 units Q12HR SQ 12/01/17 21:00 (Dilaudid Pf Inj) 2 mg Q4H PRN IV PUSH 12/01/17 21:30 12/02/17 06:21 Assessment and Plan Problem List: (1) Intractable back pain ICD Codes: M54.9 - Dorsalgia, unspecified Plan: Ortho, neurosurgeon consulted, Physical therapy/ rehab recommended. Surgery not warranted Pain management (2) Hypokalemia ICD Codes: E87.6 - Hypokalemia Plan: replaced, cont to monitor (3) Bipolar 1 disorder ICD Codes: F31.9 - Bipolar disorder, unspecified Plan: Mood appears stable cont home medications Assessment and Plan Consult CM for SNF Discussed Condition With patient Discharge Planning He agrees to rehab for therapy and pain control. Dotty Villa Dec 02, 2017 07:19
[2017-12-02] MEDS: CYCLOBENZAPRINE HCL 10 MG TAB PO SCH (08:33)
[2017-12-02] MEDS: SODIUM CHLORIDE 0.9% FLUSH 10 ML FLUSH IV FLUSH SCH ×2 (08:34→21:00)
[2017-12-02] MEDS: DOCUSATE SODIUM 50 MG/SENNA 8.6 MG TAB PO SCH ×2 (08:34→21:00)
[2017-12-02] MEDS: HEPARIN SODIUM - SQ 10,000 UNITS/ML VIAL SQ SCH ×2 (08:34→21:05)
[2017-12-02] MEDS: FLUoxetine HCL 20 MG CAP PO SCH (08:34)
[2017-12-02] MEDS: SODIUM CHLOR 0.9% 1000 ML INJ 1,000 ML IV SCH ×2 (08:38→23:30)
[2017-12-02 10:18] LABS: AUTOMATED NEUTROPHIL # 2.6 TH/MM3 (1.8-7.7); BASOPHIL # 0.1 TH/MM3 (0-0.2); BASOPHIL % 1.2 % (0.0-2.0); EOSINOPHIL # 0.2 TH/MM3 (0-0.4); EOSINOPHIL % 3.6 % (0.0-4.0); HEMATOCRIT 31.7 % (39.0-51.0); HEMOGLOBIN 10.6 GM/DL (13.0-17.0); LYMPH % 29.7 % (9.0-44.0); LYMPHOCYTE # 1.3 TH/MM3 (1.0-4.8); MEAN CELL VOLUME 88.7 FL (80.0-100.0); MEAN CORPUSCULAR HEMOGLOBIN 29.6 PG (27.0-34.0); MEAN CORPUSCULAR HGB CONC 33.4 % (32.0-36.0); MEAN PLATELET VOLUME 7.4 FL (7.0-11.0); MONO % 6.7 % (0.0-8.0); MONOCYTE # 0.3 TH/MM3 (0-0.9); NEUT % 58.8 % (16.0-70.0); PLATELET COUNT 187 TH/MM3 (150-450); RED BLOOD COUNT 3.58 MIL/MM3 (4.50-5.90); RED CELL DISTRIBUTION WIDTH 15.2 % (11.6-17.2); WHITE BLOOD COUNT 4.4 TH/MM3 (4.0-11.0)
[2017-12-02 11:00] LABS: BICARBONATE 24.8 MEQ/L (21.0-32.0); CALCIUM 8.2 MG/DL (8.5-10.1); CREATININE 0.9 MG/DL (0.60-1.30)
[2017-12-03] MEDS: oxyCODONE/ACETAMINOPHEN 10 MG/325 MG TAB PO PRN ×5 (00:57→17:27)
[2017-12-03] MEDS: HYDROmorphone HCL PF 2 MG/ML VIAL IV PUSH PRN ×5 (02:07→18:14)
[2017-12-03 03:32] VITALS: BP 123/73; PULSE 77; RESP 18; TEMP 98.2; O2SAT 97
[2017-12-03 08:00] VITALS: BP 126/65; PULSE 74; RESP 18; TEMP 97.7; O2SAT 99
[2017-12-03] MEDS: CYCLOBENZAPRINE HCL 10 MG TAB PO SCH (09:12)
[2017-12-03] MEDS: DOCUSATE SODIUM 50 MG/SENNA 8.6 MG TAB PO SCH ×2 (09:12→20:45)
[2017-12-03] MEDS: FLUoxetine HCL 20 MG CAP PO SCH (09:13)
[2017-12-03] MEDS: HEPARIN SODIUM - SQ 10,000 UNITS/ML VIAL SQ SCH ×2 (09:14→20:45)
[2017-12-03] MEDS: SODIUM CHLORIDE 0.9% FLUSH 10 ML FLUSH IV FLUSH SCH ×2 (09:20→20:45)
[2017-12-03] MEDS: SODIUM CHLOR 0.9% 1000 ML INJ 1,000 ML IV SCH (09:20)
[2017-12-03 12:00] VITALS: BP 133/64; PULSE 77; RESP 18; TEMP 98.8; O2SAT 97
[2017-12-03 16:00] VITALS: BP 129/63; PULSE 77; RESP 20; TEMP 98.1; O2SAT 98
--- NOTE | 2017-12-03 19:34 | HHI.PR ---
Subjective Remarks The patient complains of excruciating pain in the right knee which feels as a stabbing pains, itching and burning. The patient also complains of low back pain. The patient denies chest pain or shortness of breath. Stable vital signs. Objective Vitals Vital Signs Date Time Temp Pulse Resp B/P (MAP) Pulse Ox O2 Delivery O2 Flow Rate FiO2 12/03/17 16:00 98.1 77 20 129/63 (85) 98 12/03/17 12:00 98.8 77 18 133/64 (87) 97 12/03/17 08:00 99 Room Air 12/03/17 08:00 74 12/03/17 08:00 97.7 74 18 126/65 (85) 99 12/03/17 03:32 98.2 77 18 123/73 (90) 97 12/02/17 23:08 97.9 72 18 118/62 (80) 97 12/02/17 21:05 Room Air 12/02/17 20:00 98.1 76 16 117/65 (82) 97 I/O 12/02/17 12/02/17 12/02/17 12/03/17 12/03/17 12/03/17 07:00 15:00 23:00 07:00 15:00 23:00 Intake Total 2767 ml 240 ml 720 ml Output Total 720 ml Balance 2767 ml 240 ml 0 ml Intake Oral 600 ml 240 ml 720 ml IV Total 2167 ml Output Urine Total 720 ml # Voids 3 6 8 # Bowel Movements 0 0 0 Result Diagram: 12/02/17 0949 12/02/17 0949 Imaging Last Impressions Thoracic Spine MRI 11/30/17 0000 Signed Impressions: Service Date/Time: Thursday, November 30, 2017 19:04 - CONCLUSION: Normal examination for a patient of this age. Goyo Lobo MD Lumbar Spine MRI 11/30/17 0000 Signed Impressions: Service Date/Time: Thursday, November 30, 2017 19:04 - CONCLUSION: 1. Facet arthropathy in the lower lumbar spine at L4-5-S1. This is most severe on the left side at L4-5 where there is associated abnormal marrow and soft tissue enhancement and edema and facet hypertrophy. There is lateral recess and foraminal encroachment bilaterally at L4-5-S1. Normal alignment. Goyo Lobo MD Cervical Spine MRI 11/30/17 0000 Signed Impressions: Service Date/Time: Thursday, November 30, 2017 19:04 - CONCLUSION: 1. Previous fusion of the lower cervical spine. No significant residual canal stenosis or cord impingement. Goyo Lobo MD Objective Remarks GENERAL: This is a well-nourished, well-developed patient, in mild distress due to pain. SKIN: No rashes, ecchymoses or lesions. Cool and dry. CARDIOVASCULAR: Regular rate and rhythm without murmurs, gallops, or rubs. RESPIRATORY: Clear to auscultation. Breath sounds equal bilaterally. No wheezes , rales, or rhonchi. GASTROINTESTINAL: Abdomen soft, non-tender, nondistended. MUSCULOSKELETAL: Extremities with trace pedal edema, lumbar tenderness NEUROLOGICAL: Awake and alert. Cranial nerves II through XII intact normal speech Procedures none Medications and IVs Current Medications Medications (Trade) Dose Ordered Sig/Rell Route Start Time Stop Time Status Last Admin Sodium Chloride 1,000 ml @ 100 mls/hr Q10H IV 11/30/17 21:30 12/02/17 08:38 (NS Flush) 2 ml UNSCH PRN IV FLUSH 11/30/17 22:00 12/03/17 10:45 (NS Flush) 2 ml BID IV FLUSH 12/01/17 09:00 12/03/17 09:20 (Narcan Inj) 0.4 mg UNSCH PRN IV PUSH 11/30/17 22:00 (Kaycee-Colace) 1 tab BID PO 12/01/17 09:00 12/03/17 09:12 (Milk Of Magnesia Liq) 30 ml Q12H PRN PO 11/30/17 22:00 (Senokot) 17.2 mg Q12H PRN PO 11/30/17 22:00 (Dulcolax Supp) 10 mg DAILY PRN RECTAL 11/30/17 22:00 (Lactulose Liq) 30 ml DAILY PRN PO 11/30/17 22:00 (Flexeril) 10 mg DAILY PO 12/01/17 09:00 12/03/17 09:12 (PROzac) 40 mg DAILY PO 12/01/17 09:00 12/03/17 09:13 (Percocet 10-325 Mg) 1 tab Q4H PRN PO 11/30/17 22:15 12/03/17 17:27 (Heparin Inj) 5,000 units Q12HR SQ 12/01/17 21:00 12/03/17 09:14 (Dilaudid Pf Inj) 2 mg Q4H PRN IV PUSH 12/01/17 21:30 12/03/17 18:14 A/P Problem List: (1) Intractable back pain ICD Code: M54.9 - Dorsalgia, unspecified (2) Radicular pain ICD Code: M54.10 - Radiculopathy, site unspecified (3) Bipolar 1 disorder ICD Code: F31.9 - Bipolar disorder, unspecified Assessment and Plan Neurosurgery consulted, physical therapy recommended. Surgery not warranted. I will discontinue IV morphine and oral Percocet. Start the patient on fentanyl patch 25 mcg every 3 days. I will also start the patient on morphine IR 50 mg p.o. every 6 hours as needed for pain. Hypokalemia has resolved after oral repletion. Continue to monitor BMP. Continue fluoxetine for bipolar disorder. Flash Díaz MD Dec 03, 2017 19:34
[2017-12-03 20:15] VITALS: BP 117/61; PULSE 72; RESP 18; TEMP 98.3; O2SAT 98
[2017-12-03] MEDS ORDERED: fentaNYL 25 MCG/HR PATCH T-DERMAL SCH (21:00)
[2017-12-03] MEDS: MORPHINE SULFATE 15 MG TAB PO PRN (22:06)
[2017-12-04] VITALS: BP 122/60; PULSE 75; RESP 18; TEMP 98.5; O2SAT 97
[2017-12-04] MEDS: MORPHINE SULFATE 15 MG TAB PO PRN ×4 (04:09→22:20)
[2017-12-04 04:30] VITALS: BP 127/62; PULSE 75; RESP 18; TEMP 97.3; O2SAT 98
[2017-12-04 08:00] VITALS: BP 127/66; PULSE 71; RESP 15; TEMP 98.1; O2SAT 98
[2017-12-04] MEDS: DOCUSATE SODIUM 50 MG/SENNA 8.6 MG TAB PO SCH ×2 (10:11→22:21)
[2017-12-04] MEDS: FLUoxetine HCL 20 MG CAP PO SCH (10:11)
[2017-12-04] MEDS: CYCLOBENZAPRINE HCL 10 MG TAB PO SCH (10:12)
[2017-12-04] MEDS: GABAPENTIN 100 MG CAP PO SCH ×3 (10:12→17:25)
[2017-12-04] MEDS: HEPARIN SODIUM - SQ 10,000 UNITS/ML VIAL SQ SCH ×2 (10:13→22:20)
[2017-12-04] MEDS: SODIUM CHLORIDE 0.9% FLUSH 10 ML FLUSH IV FLUSH SCH ×2 (10:17→22:20)
[2017-12-04 12:00] VITALS: BP 133/71; PULSE 65; RESP 16; TEMP 97.9; O2SAT 97
[2017-12-04 16:00] VITALS: BP 118/57; PULSE 74; RESP 16; TEMP 97.6; O2SAT 96
--- NOTE | 2017-12-04 16:21 | HHI.PR ---
Subjective Remarks The patient states that the pain in the right thigh was improved this morning, however it progressively got worst and thigh swollen. The patient denies any chest pain or shortness of breath. Patient is a febrile. Objective Vitals Vital Signs Date Time Temp Pulse Resp B/P (MAP) Pulse Ox O2 Delivery O2 Flow Rate FiO2 12/04/17 12:00 97.9 65 16 133/71 (91) 97 12/04/17 08:00 98.1 71 15 127/66 (86) 98 12/04/17 04:30 97.3 75 18 127/62 (83) 98 12/04/17 00:00 98.5 75 18 122/60 (80) 97 12/03/17 20:15 98.3 72 18 117/61 (79) 98 I/O 12/03/17 12/03/17 12/03/17 12/04/17 12/04/17 12/04/17 07:00 15:00 23:00 07:00 15:00 23:00 Intake Total 240 ml 720 ml 1020 ml 360 ml Output Total 720 ml Balance 240 ml 0 ml 1020 ml 360 ml Intake Oral 240 ml 720 ml 1020 ml 360 ml Output Urine Total 720 ml # Voids 6 8 3 1 # Bowel Movements 0 0 0 0 Result Diagram: 12/02/17 0949 12/02/17 0949 Imaging Last Impressions Thoracic Spine MRI 11/30/17 0000 Signed Impressions: Service Date/Time: Thursday, November 30, 2017 19:04 - CONCLUSION: Normal examination for a patient of this age. Goyo Lobo MD Lumbar Spine MRI 11/30/17 0000 Signed Impressions: Service Date/Time: Thursday, November 30, 2017 19:04 - CONCLUSION: 1. Facet arthropathy in the lower lumbar spine at L4-5-S1. This is most severe on the left side at L4-5 where there is associated abnormal marrow and soft tissue enhancement and edema and facet hypertrophy. There is lateral recess and foraminal encroachment bilaterally at L4-5-S1. Normal alignment. Goyo Lobo MD Cervical Spine MRI 11/30/17 0000 Signed Impressions: Service Date/Time: Thursday, November 30, 2017 19:04 - CONCLUSION: 1. Previous fusion of the lower cervical spine. No significant residual canal stenosis or cord impingement. Goyo Lobo MD Objective Remarks GENERAL: This is a well-nourished, well-developed patient, in mild distress due to pain. SKIN: No rashes, ecchymoses or lesions. Cool and dry. CARDIOVASCULAR: Regular rate and rhythm without murmurs, gallops, or rubs. RESPIRATORY: Clear to auscultation. Breath sounds equal bilaterally. No wheezes , rales, or rhonchi. GASTROINTESTINAL: Abdomen soft, non-tender, nondistended. MUSCULOSKELETAL: Extremities with trace pedal edema, lumbar tenderness NEUROLOGICAL: Awake and alert. Cranial nerves II through XII intact normal speech Procedures none Medications and IVs Current Medications Medications (Trade) Dose Ordered Sig/Rell Route Start Time Stop Time Status Last Admin (NS Flush) 2 ml UNSCH PRN IV FLUSH 11/30/17 22:00 12/03/17 10:45 (NS Flush) 2 ml BID IV FLUSH 12/01/17 09:00 12/04/17 10:17 (Narcan Inj) 0.4 mg UNSCH PRN IV PUSH 11/30/17 22:00 (Kaycee-Colace) 1 tab BID PO 12/01/17 09:00 12/04/17 10:11 (Milk Of Magnesia Liq) 30 ml Q12H PRN PO 11/30/17 22:00 (Senokot) 17.2 mg Q12H PRN PO 11/30/17 22:00 (Dulcolax Supp) 10 mg DAILY PRN RECTAL 11/30/17 22:00 (Lactulose Liq) 30 ml DAILY PRN PO 11/30/17 22:00 (Flexeril) 10 mg DAILY PO 12/01/17 09:00 12/04/17 10:12 (PROzac) 40 mg DAILY PO 12/01/17 09:00 12/04/17 10:11 (Heparin Inj) 5,000 units Q12HR SQ 12/01/17 21:00 12/04/17 10:13 (Msir) 15 mg Q6H PRN PO 12/03/17 19:30 12/04/17 16:14 (Neurontin) 200 mg TID PO 12/04/17 09:00 12/04/17 13:00 (Duragesic 50 Mcg Patch.72 Hr) 1 patch Q3D T-DERMAL 12/04/17 17:00 Miscellaneous Information 1 Q3D T-DERMAL 12/04/17 17:00 A/P Problem List: (1) Intractable back pain ICD Code: M54.9 - Dorsalgia, unspecified (2) Radicular pain ICD Code: M54.10 - Radiculopathy, site unspecified (3) Bipolar 1 disorder ICD Code: F31.9 - Bipolar disorder, unspecified Assessment and Plan Neurosurgery consulted, physical therapy recommended. Surgery not warranted. I will discontinue IV morphine and oral Percocet. Start the patient on fentanyl patch 25 mcg every 3 days. I will also start the patient on morphine IR 50 mg p.o. every 6 hours as needed for pain. Hypokalemia has resolved after oral repletion. Continue to monitor BMP. Continue fluoxetine for bipolar disorder. 12/04 pain is uncontrolled. I will increase dose of fentanyl patch to 50 mcg every 3 days. Continue morphine IR every 6 hours as needed for pain. Discharge Planning Pending pain control. Flash Díaz MD Dec 04, 2017 16:21
[2017-12-04] MEDS ORDERED: fentaNYL 50 MCG/HR PATCH T-DERMAL SCH (17:00)
[2017-12-04] MEDS ORDERED: REMOVE OLD PATCH T-DERMAL SCH (17:00)
--- NOTE | 2017-12-04 17:55 | RADRPT ---
EXAM DATE/TIME: 12/04/2017 16:59 [place] COMPARISON: No previous studies available for comparison. INDICATIONS : Right leg pain. MEDICAL HISTORY : Hepatitis C. Cirrhosis. Asthma. Incontinence. Arthritis. Bipolar disorder. Cerebrovascular accide nt. Blood transfusion. SURGICAL HISTORY : Fusion, lumbar. Coronary artery stent. Neck surgery. Right knee surgery. ENCOUNTER: Initial ACUITY: 1 day PAIN SCORE: 4/10 LOCATION: Right leg. TECHNIQUE: Venous ultrasound of the leg was performed from the inguinal ligament to the proximal calf. Real-akil e, color Doppler and spectral tracing, compression and augmentation techniques were used. FINDINGS: There is normal compressibility of the deep venous system from the inguinal region to the proximal ca lf. No echogenic clot is seen in the lumen of the common femoral, femoral, popliteal, and posterior tibial veins. There is a normal response of the venous system to proximal and distal augmentation an d respiration. CONCLUSION: 1. Negative for deep venous thrombosis. Regan Perdue MD on December 04, 2017 at 17:52 Board Certified Radiologist. This report was verified electronically.
[2017-12-04 19:45] VITALS: BP 120/63; PULSE 72; RESP 17; TEMP 98; O2SAT 95
[2017-12-05 00:15] VITALS: BP 126/68; PULSE 67; RESP 18; TEMP 98.3; O2SAT 96
[2017-12-05 04:10] VITALS: BP 120/64; PULSE 68; RESP 18; TEMP 97.7; O2SAT 99
[2017-12-05] MEDS: MORPHINE SULFATE 15 MG TAB PO PRN ×4 (04:28→22:25)
[2017-12-05 08:00] VITALS: BP 145/78; PULSE 70; RESP 18; TEMP 97.4; O2SAT 98
[2017-12-05] MEDS: CYCLOBENZAPRINE HCL 10 MG TAB PO SCH (08:24)
[2017-12-05] MEDS: GABAPENTIN 100 MG CAP PO SCH ×3 (08:24→17:39)
[2017-12-05] MEDS: DOCUSATE SODIUM 50 MG/SENNA 8.6 MG TAB PO SCH ×2 (08:24→20:28)
[2017-12-05] MEDS: FLUoxetine HCL 20 MG CAP PO SCH (08:24)
[2017-12-05] MEDS: SODIUM CHLORIDE 0.9% FLUSH 10 ML FLUSH IV FLUSH SCH ×2 (08:25→20:28)
[2017-12-05] MEDS: HEPARIN SODIUM - SQ 10,000 UNITS/ML VIAL SQ SCH ×2 (08:25→20:29)
--- NOTE | 2017-12-05 09:28 | HHI.PR ---
Subjective Remarks The patient states that the pain in the right thigh was improved this morning, however it progressively got worst and thigh swollen. The patient denies any chest pain or shortness of breath. Patient is a febrile. 12/05: Seen in his bedroom, improving his pain but not ready to go home, No nausea, vomit or diarrhea. Objective Vital Signs Date Time Temp Pulse Resp B/P (MAP) Pulse Ox O2 Delivery O2 Flow Rate FiO2 12/05/17 08:00 97.4 70 18 145/78 (100) 98 12/05/17 04:10 97.7 68 18 120/64 (82) 99 12/05/17 00:15 98.3 67 18 126/68 (87) 96 12/04/17 19:45 98.0 72 17 120/63 (82) 95 12/04/17 16:00 97.6 74 16 118/57 (77) 96 12/04/17 12:00 97.9 65 16 133/71 (91) 97 I/O 12/04/17 12/04/17 12/04/17 12/05/17 12/05/17 12/05/17 07:00 15:00 23:00 07:00 15:00 23:00 Intake Total 1020 ml 360 ml 1020 ml Balance 1020 ml 360 ml 1020 ml Intake Oral 1020 ml 360 ml 1020 ml # Voids 3 1 3 # Bowel Movements 0 0 0 Result Diagram: 12/02/17 0949 12/02/17 0949 Imaging Last Impressions Lower Extremity Ultrasound 12/04/17 0000 Signed Impressions: Service Date/Time: Monday, December 04, 2017 16:59 - CONCLUSION: 1. Negative for deep venous thrombosis. Regan Perdue MD Thoracic Spine MRI 11/30/17 0000 Signed Impressions: Service Date/Time: Thursday, November 30, 2017 19:04 - CONCLUSION: Normal examination for a patient of this age. Goyo Lobo MD Lumbar Spine MRI 11/30/17 0000 Signed Impressions: Service Date/Time: Thursday, November 30, 2017 19:04 - CONCLUSION: 1. Facet arthropathy in the lower lumbar spine at L4-5-S1. This is most severe on the left side at L4-5 where there is associated abnormal marrow and soft tissue enhancement and edema and facet hypertrophy. There is lateral recess and foraminal encroachment bilaterally at L4-5-S1. Normal alignment. Goyo Lobo MD Cervical Spine MRI 11/30/17 0000 Signed Impressions: Service Date/Time: Thursday, November 30, 2017 19:04 - CONCLUSION: 1. Previous fusion of the lower cervical spine. No significant residual canal stenosis or cord impingement. Goyo Lobo MD Procedures None Other Results Laboratory Tests Test 11/30/17 17:00 11/30/17 18:45 12/02/17 09:49 Urine Color YELLOW Urine Turbidity CLEAR Urine pH 6.0 Urine Specific [place] 1.017 Urine Protein NEG mg/dL Urine Glucose (UA) NEG mg/dL Urine Ketones NEG mg/dL Urine Occult Blood NEG Urine Nitrite NEG Urine Bilirubin NEG Urine Urobilinogen LESS THAN 2.0 MG/DL Urine Leukocyte Esterase NEG Urine RBC 1 /hpf Urine Squamous Epithelial Cells <1 /hpf Microscopic Urinalysis Comment CULT NOT INDICATED Blood Urea Nitrogen 9 MG/DL 12 MG/DL Creatinine 0.84 MG/DL 0.90 MG/DL Random Glucose 86 MG/DL 109 MG/DL Total Protein 7.4 GM/DL Albumin 3.9 GM/DL Calcium Level 8.9 MG/DL 8.2 MG/DL Alkaline Phosphatase 81 U/L Aspartate Amino Transf (AST/SGOT) 4 U/L Alanine Aminotransferase (ALT/SGPT) 13 U/L Total Bilirubin 0.4 MG/DL Sodium Level 142 MEQ/L 139 MEQ/L Potassium Level 3.4 MEQ/L 4.2 MEQ/L Chloride Level 110 MEQ/L 108 MEQ/L Carbon Dioxide Level 25.1 MEQ/L 24.8 MEQ/L Prothrombin Time 10.4 SEC Prothromb Time International Ratio 1.0 RATIO Activated Partial Thromboplast Time 23.5 SEC White Blood Count 4.4 TH/MM3 Red Blood Count 3.58 MIL/MM3 Hemoglobin 10.6 GM/DL Hematocrit 31.7 % Mean Corpuscular Volume 88.7 FL Mean Corpuscular Hemoglobin 29.6 PG Mean Corpuscular Hemoglobin Concent 33.4 % Red Cell Distribution Width 15.2 % Platelet Count 187 TH/MM3 Mean Platelet Volume 7.4 FL Neutrophils (%) (Auto) 58.8 % Lymphocytes (%) (Auto) 29.7 % Monocytes (%) (Auto) 6.7 % Eosinophils (%) (Auto) 3.6 % Basophils (%) (Auto) 1.2 % Neutrophils # (Auto) 2.6 TH/MM3 Lymphocytes # (Auto) 1.3 TH/MM3 Monocytes # (Auto) 0.3 TH/MM3 Eosinophils # (Auto) 0.2 TH/MM3 Basophils # (Auto) 0.1 TH/MM3 CBC Comment DIFF FINAL Differential Comment Anion Gap 6 MEQ/L Estimat Glomerular Filtration Rate 87 ML/MIN Objective Remarks GENERAL: Obese patient in no acute distress. SKIN: No rashes, ecchymoses or lesions. Cool and dry. CARDIOVASCULAR: Regular rate and rhythm without murmurs, gallops, or rubs. RESPIRATORY: Clear to auscultation. Breath sounds equal bilaterally. No wheezes , rales, or rhonchi. GASTROINTESTINAL: Abdomen soft, non-tender, nondistended. MUSCULOSKELETAL: Extremities with trace pedal edema, lumbar tenderness NEUROLOGICAL: Awake and alert. Cranial nerves II through XII intact normal speech Medications and IVs Current Medications Medications (Trade) Dose Ordered Sig/Rell Route Start Time Stop Time Status Last Admin (NS Flush) 2 ml UNSCH PRN IV FLUSH 11/30/17 22:00 12/03/17 10:45 (NS Flush) 2 ml BID IV FLUSH 12/01/17 09:00 12/05/17 08:25 (Narcan Inj) 0.4 mg UNSCH PRN IV PUSH 11/30/17 22:00 (Kaycee-Colace) 1 tab BID PO 12/01/17 09:00 12/05/17 08:24 (Milk Of Magnesia Liq) 30 ml Q12H PRN PO 11/30/17 22:00 (Senokot) 17.2 mg Q12H PRN PO 11/30/17 22:00 (Dulcolax Supp) 10 mg DAILY PRN RECTAL 11/30/17 22:00 (Lactulose Liq) 30 ml DAILY PRN PO 11/30/17 22:00 (Flexeril) 10 mg DAILY PO 12/01/17 09:00 12/05/17 08:24 (PROzac) 40 mg DAILY PO 12/01/17 09:00 12/05/17 08:24 (Heparin Inj) 5,000 units Q12HR SQ 12/01/17 21:00 12/05/17 08:25 (Msir) 15 mg Q6H PRN PO 12/03/17 19:30 12/05/17 04:28 (Neurontin) 200 mg TID PO 12/04/17 09:00 12/05/17 08:24 (Duragesic 50 Mcg Patch.72 Hr) 1 patch Q3D T-DERMAL 12/04/17 17:00 12/04/17 17:26 Miscellaneous Information 1 Q3D T-DERMAL 12/04/17 17:00 12/04/17 17:00 A/P Assessment and Plan (1) Intractable back pain ICD Code: M54.9 - Dorsalgia, unspecified (2) Radicular pain ICD Code: M54.10 - Radiculopathy, site unspecified (3) Bipolar 1 disorder ICD Code: F31.9 - Bipolar disorder, unspecified Assessment and Plan Neurosurgery consulted, physical therapy recommended. Surgery not warranted. Continue Fentanyl Patch 50 mcg/min, Percocet and Morphine IR, as per patient not ready for discharge. Hypokalemia has replaced. Continue fluoxetine for bipolar disorder. DVT prophylaxis with Heparin. Discharge Planning Expected by tomorrow. Rivas Naqvi MD Dec 05, 2017 09:28
[2017-12-05 12:00] VITALS: BP 129/62; PULSE 75; RESP 17; TEMP 98; O2SAT 98
[2017-12-05 16:29] VITALS: BP 102/62; PULSE 76; RESP 18; TEMP 97.8; O2SAT 96
[2017-12-05 20:00] VITALS: BP 134/73; PULSE 68; RESP 19; TEMP 98.4; O2SAT 95
[2017-12-06] VITALS: BP 126/78; PULSE 69; RESP 20; TEMP 97.8; O2SAT 96
[2017-12-06 04:00] VITALS: BP 133/75; PULSE 64; RESP 19; TEMP 97.8; O2SAT 96
[2017-12-06] MEDS: MORPHINE SULFATE 15 MG TAB PO PRN ×3 (04:17→15:52)
[2017-12-06 07:54] VITALS: BP 130/65; PULSE 65; RESP 16; TEMP 97.4; O2SAT 98
[2017-12-06] MEDS: CYCLOBENZAPRINE HCL 10 MG TAB PO SCH (08:33)
[2017-12-06] MEDS: HEPARIN SODIUM - SQ 10,000 UNITS/ML VIAL SQ SCH (08:33)
[2017-12-06] MEDS: GABAPENTIN 100 MG CAP PO SCH ×2 (08:33→12:39)
[2017-12-06] MEDS: DOCUSATE SODIUM 50 MG/SENNA 8.6 MG TAB PO SCH (08:33)
[2017-12-06] MEDS: FLUoxetine HCL 20 MG CAP PO SCH (08:33)
[2017-12-06] MEDS: SODIUM CHLORIDE 0.9% FLUSH 10 ML FLUSH IV FLUSH SCH (08:34)
[2017-12-06] MEDS ORDERED: GABA100C4 PO (09:52)
[2017-12-06] MEDS ORDERED: MSIR15 PO (09:52)
[2017-12-06] MEDS ORDERED: FENT50T T-DERMAL (09:52)
[2017-12-06 11:26] VITALS: RESP 18
--- NOTE | 2017-12-06 12:11 | HHI.PR ---
Subjective Remarks The patient states that the pain in the right thigh was improved this morning, however it progressively got worst and thigh swollen. The patient denies any chest pain or shortness of breath. Patient is a febrile. 12/06: Seen in his bedroom, discussed with nurse and with Physical Therapy, Multidisciplinary rounds, no nausea, vomit or diarrhea okay to discharge Home and No further needs. Objective Vital Signs Date Time Temp Pulse Resp B/P (MAP) Pulse Ox O2 Delivery O2 Flow Rate FiO2 12/06/17 11:26 18 12/06/17 08:00 Room Air 12/06/17 07:54 97.4 65 16 130/65 (86) 98 12/06/17 04:00 97.8 64 19 133/75 (94) 96 12/06/17 00:00 97.8 69 20 126/78 (94) 96 12/05/17 20:00 98.4 68 19 134/73 (93) 95 12/05/17 16:29 97.8 76 18 102/62 (75) 96 I/O 12/05/17 12/05/17 12/05/17 12/06/17 12/06/17 12/06/17 07:00 15:00 23:00 07:00 15:00 23:00 Intake Total 1020 ml 960 ml 900 ml Balance 1020 ml 960 ml 900 ml Intake Oral 1020 ml 960 ml 900 ml # Voids 3 2 3 # Bowel Movements 0 0 Result Diagram: 12/02/17 0949 12/02/17 0949 Imaging Last Impressions Lower Extremity Ultrasound 12/04/17 0000 Signed Impressions: Service Date/Time: Monday, December 04, 2017 16:59 - CONCLUSION: 1. Negative for deep venous thrombosis. Regan Perdue MD Thoracic Spine MRI 11/30/17 0000 Signed Impressions: Service Date/Time: Thursday, November 30, 2017 19:04 - CONCLUSION: Normal examination for a patient of this age. Goyo Lobo MD Lumbar Spine MRI 11/30/17 0000 Signed Impressions: Service Date/Time: Thursday, November 30, 2017 19:04 - CONCLUSION: 1. Facet arthropathy in the lower lumbar spine at L4-5-S1. This is most severe on the left side at L4-5 where there is associated abnormal marrow and soft tissue enhancement and edema and facet hypertrophy. There is lateral recess and foraminal encroachment bilaterally at L4-5-S1. Normal alignment. Goyo Lobo MD Cervical Spine MRI 11/30/17 0000 Signed Impressions: Service Date/Time: Thursday, November 30, 2017 19:04 - CONCLUSION: 1. Previous fusion of the lower cervical spine. No significant residual canal stenosis or cord impingement. Goyo Lobo MD Procedures None Other Results Laboratory Tests Test 11/30/17 17:00 11/30/17 18:45 12/02/17 09:49 Urine Color YELLOW Urine Turbidity CLEAR Urine pH 6.0 Urine Specific [place] 1.017 Urine Protein NEG mg/dL Urine Glucose (UA) NEG mg/dL Urine Ketones NEG mg/dL Urine Occult Blood NEG Urine Nitrite NEG Urine Bilirubin NEG Urine Urobilinogen LESS THAN 2.0 MG/DL Urine Leukocyte Esterase NEG Urine RBC 1 /hpf Urine Squamous Epithelial Cells <1 /hpf Microscopic Urinalysis Comment CULT NOT INDICATED Blood Urea Nitrogen 9 MG/DL 12 MG/DL Creatinine 0.84 MG/DL 0.90 MG/DL Random Glucose 86 MG/DL 109 MG/DL Total Protein 7.4 GM/DL Albumin 3.9 GM/DL Calcium Level 8.9 MG/DL 8.2 MG/DL Alkaline Phosphatase 81 U/L Aspartate Amino Transf (AST/SGOT) 4 U/L Alanine Aminotransferase (ALT/SGPT) 13 U/L Total Bilirubin 0.4 MG/DL Sodium Level 142 MEQ/L 139 MEQ/L Potassium Level 3.4 MEQ/L 4.2 MEQ/L Chloride Level 110 MEQ/L 108 MEQ/L Carbon Dioxide Level 25.1 MEQ/L 24.8 MEQ/L Prothrombin Time 10.4 SEC Prothromb Time International Ratio 1.0 RATIO Activated Partial Thromboplast Time 23.5 SEC White Blood Count 4.4 TH/MM3 Red Blood Count 3.58 MIL/MM3 Hemoglobin 10.6 GM/DL Hematocrit 31.7 % Mean Corpuscular Volume 88.7 FL Mean Corpuscular Hemoglobin 29.6 PG Mean Corpuscular Hemoglobin Concent 33.4 % Red Cell Distribution Width 15.2 % Platelet Count 187 TH/MM3 Mean Platelet Volume 7.4 FL Neutrophils (%) (Auto) 58.8 % Lymphocytes (%) (Auto) 29.7 % Monocytes (%) (Auto) 6.7 % Eosinophils (%) (Auto) 3.6 % Basophils (%) (Auto) 1.2 % Neutrophils # (Auto) 2.6 TH/MM3 Lymphocytes # (Auto) 1.3 TH/MM3 Monocytes # (Auto) 0.3 TH/MM3 Eosinophils # (Auto) 0.2 TH/MM3 Basophils # (Auto) 0.1 TH/MM3 CBC Comment DIFF FINAL Differential Comment Anion Gap 6 MEQ/L Estimat Glomerular Filtration Rate 87 ML/MIN Objective Remarks GENERAL: Obese patient in no acute distress. SKIN: No rashes, ecchymoses or lesions. Cool and dry. CARDIOVASCULAR: Regular rate and rhythm without murmurs, gallops, or rubs. RESPIRATORY: Clear to auscultation. Breath sounds equal bilaterally. No wheezes , rales, or rhonchi. GASTROINTESTINAL: Abdomen soft, non-tender, nondistended. MUSCULOSKELETAL: Extremities with trace pedal edema, lumbar tenderness NEUROLOGICAL: Awake and alert. Cranial nerves II through XII intact normal speech Medications and IVs Current Medications Medications (Trade) Dose Ordered Sig/Rell Route Start Time Stop Time Status Last Admin (NS Flush) 2 ml UNSCH PRN IV FLUSH 11/30/17 22:00 12/03/17 10:45 (NS Flush) 2 ml BID IV FLUSH 12/01/17 09:00 12/06/17 08:34 (Narcan Inj) 0.4 mg UNSCH PRN IV PUSH 11/30/17 22:00 (Kaycee-Colace) 1 tab BID PO 12/01/17 09:00 12/06/17 08:33 (Milk Of Magnesia Liq) 30 ml Q12H PRN PO 11/30/17 22:00 (Senokot) 17.2 mg Q12H PRN PO 11/30/17 22:00 (Dulcolax Supp) 10 mg DAILY PRN RECTAL 11/30/17 22:00 (Lactulose Liq) 30 ml DAILY PRN PO 11/30/17 22:00 (Flexeril) 10 mg DAILY PO 12/01/17 09:00 12/06/17 08:33 (PROzac) 40 mg DAILY PO 12/01/17 09:00 12/06/17 08:33 (Heparin Inj) 5,000 units Q12HR SQ 12/01/17 21:00 12/06/17 08:33 (Msir) 15 mg Q6H PRN PO 12/03/17 19:30 12/06/17 10:26 (Neurontin) 200 mg TID PO 12/04/17 09:00 12/06/17 08:33 (Duragesic 50 Mcg Patch.72 Hr) 1 patch Q3D T-DERMAL 12/04/17 17:00 12/04/17 17:26 Miscellaneous Information 1 Q3D T-DERMAL 12/04/17 17:00 12/04/17 17:00 A/P Assessment and Plan (1) Intractable back pain ICD Code: M54.9 - Dorsalgia, unspecified (2) Radicular pain ICD Code: M54.10 - Radiculopathy, site unspecified (3) Bipolar 1 disorder ICD Code: F31.9 - Bipolar disorder, unspecified Assessment and Plan Neurosurgery consulted, physical therapy recommended. Surgery not warranted. Continue Fentanyl Patch 50 mcg/min, Percocet and Morphine IR, will continue Home medicines and follow for discharge. Hypokalemia has replaced. Continue fluoxetine for bipolar disorder. DVT prophylaxis with Heparin. Discharge Planning Discharge home and follow with PCP. Rivas Naqvi MD Dec 06, 2017 12:11
--- NOTE | 2017-12-06 12:14 | HHI.DS ---
Discharge Summary Admission Date Nov 30, 2017 at 21:47 Discharge Date: Dec 06, 2017 Admitting Diagnosis Intractable back pain, right leg weakness, incontinence of stool (1) Intractable back pain ICD Code: M54.9 - Dorsalgia, unspecified Diagnosis: Principal (2) Radicular pain ICD Code: M54.10 - Radiculopathy, site unspecified Diagnosis: Principal (3) Bipolar 1 disorder ICD Code: F31.9 - Bipolar disorder, unspecified Diagnosis: Principal Procedures none Brief History - From Admission Franky is a 57-year-old male who has a history of chronic low back pain. Approximately 2 years ago he had similar symptoms. He has subsequently treated with surgery up at [facility] in [place]. He states at that time he was having severe back and leg pain. He had also developed bowel and bladder incontinence. He was doing better after surgery. Over the past 2 months, he has had increasing pain. He has had intermittent bowel and bladder incontinence over the past 2 months. He states that he has had bowel movements in bed without knowing it. He also complains of a burning pain in his right thigh. He presented to the Emergency Room for further evaluation. He is currently awake and alert in the Emergency Department. He complains mostly of low back pain. CBC/BMP: 12/02/17 0949 12/02/17 0949 Imaging Last Impressions Lower Extremity Ultrasound 12/04/17 0000 Signed Impressions: Service Date/Time: Monday, December 04, 2017 16:59 - CONCLUSION: 1. Negative for deep venous thrombosis. Regan Perdue MD Thoracic Spine MRI 11/30/17 0000 Signed Impressions: Service Date/Time: Thursday, November 30, 2017 19:04 - CONCLUSION: Normal examination for a patient of this age. Goyo Lobo MD Lumbar Spine MRI 11/30/17 0000 Signed Impressions: Service Date/Time: Thursday, November 30, 2017 19:04 - CONCLUSION: 1. Facet arthropathy in the lower lumbar spine at L4-5-S1. This is most severe on the left side at L4-5 where there is associated abnormal marrow and soft tissue enhancement and edema and facet hypertrophy. There is lateral recess and foraminal encroachment bilaterally at L4-5-S1. Normal alignment. Goyo Lobo MD Cervical Spine MRI 11/30/17 0000 Signed Impressions: Service Date/Time: Thursday, November 30, 2017 19:04 - CONCLUSION: 1. Previous fusion of the lower cervical spine. No significant residual canal stenosis or cord impingement. Goyo Lobo MD PE at Discharge GENERAL: Obese patient in no acute distress. SKIN: No rashes, ecchymoses or lesions. Cool and dry. CARDIOVASCULAR: Regular rate and rhythm without murmurs, gallops, or rubs. RESPIRATORY: Clear to auscultation. Breath sounds equal bilaterally. No wheezes , rales, or rhonchi. GASTROINTESTINAL: Abdomen soft, non-tender, nondistended. MUSCULOSKELETAL: Extremities with trace pedal edema, lumbar tenderness NEUROLOGICAL: Awake and alert. Cranial nerves II through XII intact normal speech Hospital Course The patient states that the pain in the right thigh was improved this morning, however it progressively got worst and thigh swollen. The patient denies any chest pain or shortness of breath. Patient is a febrile. 12/06: Seen in his bedroom, discussed with nurse and with Physical Therapy, Multidisciplinary rounds, no nausea, vomit or diarrhea okay to discharge Home and No further needs. Assessment and Plan (1) Intractable back pain ICD Code: M54.9 - Dorsalgia, unspecified (2) Radicular pain ICD Code: M54.10 - Radiculopathy, site unspecified (3) Bipolar 1 disorder ICD Code: F31.9 - Bipolar disorder, unspecified Assessment and Plan Neurosurgery consulted, physical therapy recommended. Surgery not warranted. Continue Fentanyl Patch 50 mcg/min, Percocet and Morphine IR, will continue Home medicines and follow for discharge. Hypokalemia has replaced. Continue fluoxetine for bipolar disorder. DVT prophylaxis with Heparin. Discharge Planning Discharge home and follow with PCP. Pt Condition on Discharge: Good Discharge Disposition: Discharge Home Discharge Time: > 30 minutes Discharge Instructions DIET: Follow Instructions for: Heart Healthy Diet Activities you can perform: Regular-No Restrictions Rivas Naqvi MD Dec 06, 2017 12:14
[2017-12-06] MEDS ORDERED: REMOVE OLD PATCH T-DERMAL SCH (21:00)
== END 2017-12-06 15:49 | disposition home or self-care (01) | DRG 74 ==
LOC: NEPE 14:01 → NEDA 21:47 → NEDH 12-01 02:10 → N06B 12-01 10:17
PROVIDERS: ADMIT Family Medicine; ATTEND Family Medicine
DX: G83.4 Cauda equina syndrome (principal); R15.9 Full incontinence of feces; K74.60 Unspecified cirrhosis of liver; M51.17 Intervertebral disc disorders with radiculopathy, lumbosacral region; F31.9 Bipolar disorder, unspecified; M19.90 Unspecified osteoarthritis, unspecified site; R20.0 Anesthesia of skin; F41.9 Anxiety disorder, unspecified; B19.20 Unspecified viral hepatitis C without hepatic coma; G43.909 Migraine, unspecified, not intractable, without status migrainosus; F17.210 Nicotine dependence, cigarettes, uncomplicated; R32 Unspecified urinary incontinence; Z98.1 Arthrodesis status; E87.6 Hypokalemia
CPT/HCPCS: 72146; 72156; 72158; 80048; 80053; 81001; 85025; 85610; 85730; 93971; 96372; 96374; 96375; A9579; J1170; J1644; J2060; J2270; J2405; J7030; L1830